=== PATIENT | female | born 1960 | race Two or more races ===

== ENCOUNTER 2020-07-30 12:40 | Day surgery (SDC) | payer OTHER ==
[~2020-07-30 12:40] MED LIST: CIPRO500 MG PO; FLAGYL500MG PO; PERCOCET 5/3251 TAB PO
== END 2020-07-30 17:15 | disposition home or self-care (01) ==
LOC: AMB-ENDOS 12:40
PROVIDERS: ATTEND Surgery
DX: K62.89 Other specified diseases of anus and rectum (principal); Z20.822 Contact with and (suspected) exposure to COVID-19